=== PATIENT | male | born 1950 | race Caucasian/White ===

== ENCOUNTER → 2017-04-14 | Outpatient (CLI) | payer OTHER | LOC: MMPC 11:11 | PROVIDERS: ATTEND Physician Assistant | DX: J32.9 Chronic sinusitis, unspecified (principal) | CPT/HCPCS: 99213; G0463 ==

== ENCOUNTER → 2017-05-29 | Outpatient (CLI) | payer OTHER ==
--- NOTE | 2017-05-29 13:25 | EKG ---
[address] [address] Measurements Intervals [place] Rate: 91 P: 72 CT: 181 QRS: 74 QRSD: 97 T: 46 QT: 362 QTc: 411 Interpretive Statements SINUS RHYTHM No previous ECG available for comparison Electronically Signed On 05-29-17 15:34:57 MDT by Chrsi Howard [email or web address]
--- NOTE | 2017-05-30 11:25 | DI ---
XR CXR 2VW PA/LAT,05/29/2017 2:08 PM: Clinical History: Cardiomegaly. Previous Exam: None at this facility. Findings: PA and lateral views of the chest are obtained, and demonstrate clear lungs. The cardiomediastinum an d bony thorax are unremarkable except for some mild degenerative changes of the thoracic spine. Impression: Normal chest.
== END ==
LOC: MOB EKG 13:03
PROVIDERS: ATTEND Specialist
DX: R07.9 Chest pain, unspecified (principal); I51.7 Cardiomegaly; I10 Essential (primary) hypertension; E78.5 Hyperlipidemia, unspecified; Z85.46 Personal history of malignant neoplasm of prostate; Z82.49 Family history of ischemic heart disease and other diseases of the circulatory system
CPT/HCPCS: 71020; 93005; 93010; 99204; G0463